=== PATIENT | female | born 2000 | race Caucasian/White ===

== ENCOUNTER 2025-04-24 23:01 | Emergency (ER) | payer SELFPAY ==
[~2025-04-24] VITALS: Ht 170.2 cm; Wt 71.0 kg
[2025-04-24 23:08] VITALS: O2SAT 100
[2025-04-24] MEDS: ONDANSETRON 4MG ODT PO ONE (23:52)
[2025-04-24] MEDS: KETOROLAC 30MG/ML VIAL IM ONE (23:52)
[2025-04-24 23:55] LABS: BASOPHILS % 0.5 % (0.0-2.0); EOSINOPHILS % 2.3 % (0.0-5.0); HEMATOCRIT. 41.0 % (36.0-48.0); HEMOGLOBIN. 13.7 g/dL (12.0-16.0); LYMPHOCYTES % 28.4 % (20.0-50.0); MEAN PLATELET VOLUME 8.6 fl (7.4-10.4); MONOCYTES % 9.0 % (2.0-8.0); NEUTROPHILS % 59.8 % (40.0-76.0); PLATELET 233 x1000/uL (130-400); RED BLOOD CELL COUNT 4.52 mill/uL (4.2-5.4); RED CELL DISTRIBUTION WIDTH 13.0 % (11.6-14.6)
[2025-04-25 00:06] LABS: CREATININE 0.6 mg/dL (0.6-1.0)
[2025-04-25 00:07] LABS: UREA NITROGEN BLOOD 7 mg/dL (9-23)
[2025-04-25 00:08] LABS: ASPARTATE AMINOTRANSFERASE 29 IU/L (<34); BILIRUBIN TOTAL 0.3 mg/dL (0.1-1.0); PROTEIN TOTAL 7.2 g/dL (6.0-8.3)
[2025-04-25 00:13] LABS: HCG SCREEN NEGATIVE
[2025-04-25 01:17] LABS: CLARITY URINE CLEAR (CLEAR); COLOR URINE YELLOW (YELLOW); GLUCOSE URINE NEGATIVE (NEGATIVE); KETONES URINE NEGATIVE (NEGATIVE); LEUKOCYTE ESTERASE URINE NEGATIVE (NEGATIVE); NITRITE URINE NEGATIVE (NEGATIVE); OCCULT BLOOD URINE NEGATIVE (NEGATIVE); PH URINE 6.0 (4.5-8.0); PROTEIN URINE NEGATIVE (NEGATIVE); SPECIFIC GRAVITY URINE 1.006 (1.005-1.030); UROBILINOGEN URINE 0.2 E.U./dL (0.2-1.0)
[2025-04-25] MEDS ORDERED: ONDA-239 PO (01:33)
[2025-04-25] MEDS ORDERED: LOPE2CAP MT (01:33)
[2025-04-25] MEDS ORDERED: IBUP-1455 MT (01:33)
[2025-04-25 01:40] VITALS: BP 113/75; PULSE 72; RESP 16; TEMP 36.8; O2SAT 99
== END 2025-04-25 01:43 | disposition home or self-care (01) ==
LOC: ER 23:01
DX: R11.2 Nausea with vomiting, unspecified (principal); N94.6 Dysmenorrhea, unspecified; R19.7 Diarrhea, unspecified; M54.50 Low back pain, unspecified; Z88.0 Allergy status to penicillin
CPT/HCPCS: 99283; 80053; 81025; 84703; 83690; 85025; 36415; 96372; 81003; J1885; Q0162